=== PATIENT | female | born 1965 | race Caucasian/White ===

== ENCOUNTER → 2018-03-30 08:54 | Outpatient (CLI) | payer OTHER, SELFPAY | PROVIDERS: Referring Provider Surgery; Visit Provider Surgery | DX: S99.922A Unspecified injury of left foot, initial encounter (principal) ==

== ENCOUNTER 2018-09-01 08:30 | Outpatient (RCR) | payer OTHER, SELFPAY ==
--- NOTE | 2018-08-18 09:24 | HP.PTEVAL ---
Patient's Visit Information ALEXANDRO MILES is a 52 year old F referred to Physical Therapy by Riccardo Shane with a diagnosis of R shoulder bursitis. Date of Evaluation: 08/18/18 Physical Therapist: Nasim Hernandez PT, ATC - Visit Plan Frequency: 2-3x /Week Duration: 3 Weeks Plan: R shoulder strengthening (rot cuff), scapular stab ex's, overhead ricco, UBE, and HEP - Subjective Findings: Pt reports her R shoulder has been sore for the past 6 months. Pt reports her pain progressively worsened during the holidays this past 4 months. 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 Pt reports most of her lifting required overhead lifting which really increased pain. No tingling or numbness in R UE. Pt reports she had an injection last week, which has helped for about one week, but the pain is returning. Occasional sleep difficulty secondary to pain. Pt is R hand dominant. No Dx tests performed at this time. 2/10 pain at rest, 8/10 pain at worst - Pain R shoulder Pain Intensity (Out of 10): 2 Pain Intensity Range: 8 - Objective Neuro: B UE sensation is WNL to light touch. B bicepital reflex= 2/3. ROM: L shoulder flex= 165, abd= 180, ER= 70, IR WNL; R shoulder flex= 145, abd= 170, ER= 70, IR moderately limited. Palpation: Minor tenderness along distribution os supraspinatus muscle. No obvious deformity. MMT: R shoulder ER= 4-/5. All other movements are 5/5 throughout. Special tests: positive empty can, positive HK impingement sign - Goals Goal 1:: Decrease R shoulder pain x 50% to aid with sleep Goal Time Frame: 2-4 Weeks Goal 2:: Increase R shoulder ER strength to 5/5 to aid with work requirements Goal Time Frame: 2-4 Weeks Goal 3:: Increase R shoulder ROM flexion x 10-20 degrees to aid with overhead activity Goal Time Frame: 2-4 Weeks Goal 4:: I with HEP Goal Time Frame: 2-4 Weeks - Rehabilitation Potential Physical Therapy Diagnosis: R shoulder pain, weakness, and limited ROM secondary to impingement syndrome of the R shoulder Rehabilitation Potential: Good - Anticipated Interventions Patient/Client Instruction: Educate patient on: Condition, Plan of Care For the Purpose of:: To improve self management Therapeutic Exercise to Include: Strength training, Endurance training, Body mechanics, Postural training, Scapular Strength/Stabilization For the Purpose of:: To decrease pain, To increase ROM, To improve muscle performance and motor function Cryotherapy (ice pack, ice massage): Yes For the Purpose of:: To decrease pain Thank you for the opportunity to evaluate your patient. For Medicare and Medicare HMO plans, please review the plan of care and approve it. It will need to be FAXED BACK to us at [phone] for Medicare purposes. For Medicare only, by signing this I certify the plan of care. Please let me know if there are questions or concerns regarding this plan of care. Physician Signature: Date:
--- NOTE | 2018-09-01 08:58 | HP.PTDCSUM ---
HP - PT D/C Summary It has been my pleasure to treat ALEXANDRO MILES under orders from Riccardo Shane, for the diagnosis of R shoulder bursitis for a total of 3 visit(s). Discharge Date: Please see the following information for a summary of their discharge status. - Subjective Subjective: No increase in pain after last treatment. - Pain R shoulder Pain Intensity (Out of 10): 0 - Objective Objective/Function: No increase in pain with ex's - Goals Goal 1:: Decrease R shoulder pain x 50% to aid with sleep Goal 2:: Increase R shoulder ER strength to 5/5 to aid with work requirements Goal 3:: Increase R shoulder ROM flexion x 10-20 degrees to aid with overhead activity Goal 4:: I with HEP - Plan Plan: R shoulder strengthening (rot cuff), scapular stab ex's, overhead ricco, UBE, and HEP - D/C Information If there are questions or concerns regarding this patient's physical therapy, please feel free to call me at [phone]. Thank you for the referral of this patient. Sincerely, Nasim Hernandez, PT, ATC
--- NOTE | 2018-09-01 09:00 | HP.PTDCSUM ---
HP - PT D/C Summary It has been my pleasure to treat ALEXANDRO MILES under orders from Riccardo Shane, for the diagnosis of R shoulder bursitis for a total of 4 visit(s). Discharge Date: Please see the following information for a summary of their discharge status. - Subjective Subjective: No increase in pain after last treatment. - Pain R shoulder Pain Intensity (Out of 10): 0 - Overall Improvement % Improvement: 100 - Objective Objective/Function: No increase in pain with ex's - Goals Goal 1:: Decrease R shoulder pain x 50% to aid with sleep Goal Progress: Goal Met Goal 2:: Increase R shoulder ER strength to 5/5 to aid with work requirements Goal Progress: Goal Met Goal 3:: Increase R shoulder ROM flexion x 10-20 degrees to aid with overhead activity Goal Progress: Goal Met Goal 4:: I with HEP Goal Progress: Goal Met - Plan Plan: R shoulder strengthening (rot cuff), scapular stab ex's, overhead ricco, UBE, and HEP - D/C Information If there are questions or concerns regarding this patient's physical therapy, please feel free to call me at [phone]. Thank you for the referral of this patient. Sincerely, Nasim Hernandez, PT, ATC
== END 2018-09-01 10:09 | disposition home or self-care (01) ==
LOC: PT 08:30
PROVIDERS: Referring Provider Family Medicine; Visit Provider Family Medicine
DX: M75.51 Bursitis of right shoulder (principal)
CPT/HCPCS: 97110; 97161; 97530

== ENCOUNTER → 2018-09-24 | Outpatient (CLI) | payer OTHER, SELFPAY ==
[2018-09-24 10:10] VITALS: BMI 25.0
--- NOTE | 2018-09-24 10:14 | RAD_ITS ---
STUDY: X-RAY - CERVICAL SPINE REASON FOR EXAM: Female, 52 years old. Severe neck pain. TECHNIQUE: 5 view(s) of the cervical spine were obtained including oblique views. COMPARISON: None FINDINGS: Normal anterior atlantoaxial articulation. Normal odontoid process. There is straightening of the normal cervical lordosis. There is multi-level endplate spondylosis. There is multi-level degenerative disc disease with multilevel disc space narrowing. Normal visualized intervertebral neuroforamina. The soft tissue structures are unremarkable. RAD/Cerv Spine 4 or 5 Views IMPRESSION: Multilevel disc space narrowing and spondylosis. Electronically Signed: Karl Mathews, at 15:17 EDT , Service support ,
== END | disposition home or self-care (01) ==
LOC: HPRAD 10:14
PROVIDERS: PCP Nurse Practitioner Family; Referring Provider Orthopaedic Surgery; Visit Provider Orthopaedic Surgery
DX: M54.2 Cervicalgia (principal)
CPT/HCPCS: 72050

== ENCOUNTER 2018-10-08 08:30 | Outpatient (RCR) | payer OTHER, SELFPAY ==
[2018-09-24 10:10] VITALS: BMI 25.0
--- NOTE | 2018-10-01 08:21 | HP.PTEVAL_ITS ---
Patient's Visit Information ANI MILES is a 52 year old F referred to Physical Therapy by Jon Tadeo DO with a diagnosis of CERVICAL DDD,MUSCLE SPASMS. Date of Evaluation: 10/01/18 Physical Therapist: Alexander Ludwig, PT, Cert MDT, OCS - Visit Plan Frequency: 2x /Week Duration: 4 Weeks Plan: PT INTERVENTIONS PREET EX'S,CERVICAL POSTURAL EX'S,MANUAL THERAPY STRACTION/STM,MODALITIES - Subjective Findings: This 52 y/o female presents to physical therapy with cervical pain.Patient has had cervical 2 weeks ago lifting [place] at work ,patient woke up with stiffness pain in left side affected motion. Patient seen DR recommended PT provided medication and currently getting better, Aggravating factors rotation ,lifting heaving ,prolonged sitting, Alleviating factors MEDS . Denies parathesia/tingling . Denies LAWRENCE /tinnitus/nausea. Patient has had h/o cervical pain in past.No prior PT . Patient had prior PT for right shoulder. Patient has membership at [employer] . Symptoms affect job demnads and housework . Patient sleeping okay at night. 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 SOCIAL: - Pain Left Neck Pain Intensity (Out of 10): 1 Pain Intensity Range: 10 - Objective POSTURE: rounded shoulders head foward. NEURO: denies parathesia/tingling ,C5-6-7 2/3. PALPATION: unremarkable. AROM: flexion min/mod loss,mod rotation/lateral flexion mod loss,extension mod loss. MMT: BUE 4/5. 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 AROM: BUE WFL - Special Tests C/S Radiculapathy - Left Upper limb tension test: Negative C/S Radiculapathy - Right Upper limb tension test: Negative C/S Radiculapathy - Left Spurlings: Negative C/S Radiculapathy - Right Spurlings: Negative C/S Radiculapathy - Left Cervical distraction: Negative C/S Radiculapathy - Right Cervical distraction: Negative Sharp Aryan: Negative Vertebral Artery Test: Negative Alar Ligament Test: Negative Cervical Sitting: Protrusion - Mechanical Response: No effect Cervical Sitting: Protrusion - Symptoms During Testing: Increases Cervical Sitting: Protrusion - Symptoms After Testing: Worse Cervical Sitting: Retraction - Mechanical Response: No effect Cervical Sitting: Retraction - Symptoms During Testing: Decreases Cervical Sitting: Retraction - Symptoms After Testing: Better - Goals Goal 1:: Pateint to be Independant with HEP Goal Time Frame: 2-4 Weeks Goal 2:: Independant with posture for job demnads Goal Time Frame: 2-4 Weeks Goal 3:: Patient to decrease cervical pain by 50% or greater to improve function Goal Time Frame: 2-4 Weeks Goal 4:: Patient to improve cervical ROM for function of recovery Goal Time Frame: 2-4 Weeks Goal 5:: Patient to improve neck owestry score by 5 points or greare to improve QOL. Goal Time Frame: 2-4 Weeks - Rehabilitation Potential Physical Therapy Diagnosis: Eric has cervical pain with possible derrangement with loss of cervical ROM impairs ,pain and housework and job demands thus benifit from skilled PT Rehabilitation Potential: Good - Anticipated Interventions Patient/Client Instruction: Educate patient on: Condition, Plan of Care For the Purpose of:: To decrease pain, To increase ROM, To improve nutrient delivery to tissue, To increase oxygenation perfusion, To improve muscle performance and motor function, To increase tolerance to activity/condition/position, To improve ability of physical actions for home/community/work/leisure, To improve health of tissue, To decrease soft tissue restriction, To increase flexibility/ROM, To improve ability to perform tasks related to life management Therapeutic Exercise to Include: Strength training, Postural training, Flexibilty training, Active ROM, Preet Exercises For the Purpose of:: To decrease pain, To increase ROM, To improve muscle performance and motor function, To improve ability to perform ADL's, To increase tolerance to activity/condition/position, To improve ability of physical actions for home/community/work/leisure, To improve health of tissue, To decrease soft tissue restriction, To increase flexibility/ROM, To improve ability to perform tasks related to life management Manual Therapy Techniques to Include: Mobilization Comment: CERVICAL TRACTION For the Purpose of:: To decrease pain, To increase ROM, To improve nutrient delivery to tissue, To increase oxygenation perfusion, To improve health of tissue, To decrease soft tissue restriction, To increase flexibility/ROM TENS: Yes IF ES: Yes Cryotherapy (ice pack, ice massage): Yes Thermo therapy (hot pack): Yes Ultrasound (thermal/non thermal): Yes Intermittent cervical traction: Yes For the Purpose of:: To decrease pain, To increase ROM, To improve health of tissue, To decrease soft tissue restriction Thank you for the opportunity to evaluate your patient. For Medicare and Medicare HMO plans, please review the plan of care and approve it. It will need to be FAXED BACK to us at [phone] for Medicare purposes. For Medicare only, by signing this I certify the plan of care. Please let me know if there are questions or concerns regarding this plan of care. Physician Signature: Date:
--- NOTE | 2018-12-31 15:49 | HP.PTDCNRP_ITS ---
HP - Discharge Summary (1) - Patient Information ALEXANDRO MILES was seen in my office for initial evaluation on 10/01/18. The following Plan of Care was established for this patient: Initial Frequency: 2x /Week Initial Duration: 4 Weeks - Anticipated Interventions Patient/Client Instruction: Educate patient on: Condition, Plan of Care For the Purpose of:: To decrease pain, To increase ROM, To improve nutrient delivery to tissue, To increase oxygenation perfusion, To improve muscle performance and motor function, To increase tolerance to activity/condition/position, To improve ability of physical actions for home /community/work/leisure, To improve health of tissue, To decrease soft tissue restriction, To increase flexibility/ROM, To improve ability to perform tasks related to life management Therapeutic Exercise to Include: Strength training, Postural training, Flexibilty training, Active ROM, Singh Exercises For the Purpose of:: To decrease pain, To increase ROM, To improve muscle performance and motor function, To improve ability to perform ADL's, To increase tolerance to activity/condition/position, To improve ability of physical actions for home/community/work/leisure, To improve health of tissue, To decrease soft tissue restriction, To increase flexibility/ROM, To improve ability to perform tasks related to life management Manual Therapy Techniques to Include: Mobilization Comment: CERVICAL TRACTION For the Purpose of:: To decrease pain, To increase ROM, To improve nutrient delivery to tissue, To increase oxygenation perfusion, To improve health of tissue, To decrease soft tissue restriction, To increase flexibility/ROM TENS: Yes IF ES: Yes Cryotherapy (ice pack, ice massage): Yes Thermo therapy (hot pack): Yes Ultrasound (thermal/non thermal): Yes Intermittent cervical traction: Yes For the Purpose of:: To decrease pain, To increase ROM, To improve health of tissue, To decrease soft tissue restriction This patient was last seen in our office 10/08/18. Pertinent comments regarding their Physical therapy will appear below: Patient seen for PT for cervical pain with PT focusing on manual therapy,singh ex's and postureal ex's for HEP.THUS IS D/C At this point I will be discontinuing this patient from physical therapy. I would be happy to see this patient again in the future if found appropriate by the physician. Thank you! Alexander Ludwig, PT, Cert MDT, OCS
== END 2018-10-08 19:00 | disposition home or self-care (01) ==
LOC: PT 08:30
PROVIDERS: Referring Provider Orthopaedic Surgery; Visit Provider Orthopaedic Surgery
DX: M47.892 Other spondylosis, cervical region (principal); R25.2 Cramp and spasm
CPT/HCPCS: 97035; 97140; 97161

== ENCOUNTER → 2019-03-03 | Outpatient (CLI) | payer OTHER, SELFPAY ==
[2018-09-24 10:10] VITALS: BMI 25.0
--- NOTE | 2019-03-03 13:38 | BI_ITS ---
MAMMOGRAPHY - BILATERAL SCREENING REASON FOR EXAM: Female, 53 years old. Routine annual screening examination. PERTINENT HISTORY: Non-contributory. Remote bilateral breast reduction surgery. TECHNIQUE: Digital bilateral breast zuri (3D mammographic acquisition) in the CC and MLO projections. 2-D mediolateral oblique (MLO) and craniocaudad (CC) views of both breasts were obtained. CAD: Full Field Digital Mammography with Computer Added Detection was performed. COMPARISON: Comparison is made with prior outside examination dated June 04, 2016. FINDINGS: Breast Composition: The breasts are heterogeneously dense, which may obscure small masses. There are no dominant masses or suspicious calcifications. No other significant abnormalities are identified. There has been no significant change since the prior study. BI/SCREEN MAMM (CAD) W/ZURI BILAT IMPRESSION: Stable bilateral screening mammogram. Yearly follow-up mammogram recommended. (A) ASSESSMENT CATEGORY: BIRADS Category 1: Negative. A letter regarding these results will be sent to the patient by the facility within 30 days. Approximately 10% of breast cancers are not detected by mammography. A normal mammogram should not delay biopsy of a clinically suspicious abnormality. [id number] Electronically Signed: Karl Mathews, at 14:31 EST , Service support ,
== END | disposition home or self-care (01) ==
LOC: OPBI 13:36
PROVIDERS: Family Provider Internal Medicine; PCP Internal Medicine; Referring Provider Nurse Practitioner Women's Health; Visit Provider Nurse Practitioner Women's Health
DX: Z12.31 Encounter for screening mammogram for malignant neoplasm of breast (principal)
CPT/HCPCS: 77063; 77067

== ENCOUNTER → 2019-10-13 07:14 | Outpatient (CLI) | payer OTHER, SELFPAY ==
[2018-09-24 10:10] VITALS: BMI 25.0
--- NOTE | 2019-10-13 07:27 | MRI_ITS ---
STUDY: MRI RIGHT SHOULDER REASON FOR EXAM: Female, 53 years old. persistant R shoulder/arm pain x 1.5 yrs, no injury, decreased rom TECHNIQUE: Standardized fat and water weighted pulse sequences were obtained in all 3 orthogonal planes. COMPARISON: None. FINDINGS: Mild supraspinatus tendinosis with fraying of the bursal surface fibers (coronal image 13 series 5). No high-grade or full-thickness rotator cuff tear. Mild infraspinatus tendinosis. Mild subscapularis tendinosis. Normal teres minor tendon. No muscle atrophy. Normal intracapsular long biceps tendon. Biceps labral anchor intact. Labrum intact. Capsular ligaments intact. Normal rotator cuff interval. Minimal glenohumeral articular cartilage loss. Mild acromioclavicular joint arthrosis. Anterior interval narrowing (sagittal image 13 series 6). No acute fracture. No dislocation. No bone destruction. Mild subacromial subdeltoid bursitis. Glenohumeral joint fluid physiologic. Intact coracohumeral and coracoacromial ligaments. Normal quadrilateral space. Normal axillary space. Normal deltoid muscle. Normal trapezius muscle. MRI/Upper Ext Joint Only(Routine) IMPRESSION: Mild rotator cuff tendinosis with supraspinatus bursal surface fraying Minimal glenohumeral and mild AC joint arthrosis Anterior interval narrowing/impingement Mild subacromial subdeltoid bursitis Electronically Signed: Ehsan Marino DO at 8:48 EDT Tel , Service support ,
== END ==
PROVIDERS: Referring Provider Family Medicine; Visit Provider Family Medicine
DX: M25.511 Pain in right shoulder (principal); G89.29 Other chronic pain
CPT/HCPCS: 73221

== ENCOUNTER 2019-11-23 08:00 | Outpatient (RCR) | payer OTHER, SELFPAY ==
[2018-09-24 10:10] VITALS: BMI 25.0
--- NOTE | 2019-10-31 08:13 | HP.PTEVAL_ITS ---
Patient's Visit Information ALEXANDRO MILES is a 53 year old F referred to Physical Therapy by Dr. Riccardo Shane DO with a diagnosis of Right Shoulder Impingment. 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 She reports pain is in the deltoid-no pain in the shoulder itself- no pain radiating past the elbow. Describes the pain as sharp/shooting as she uses it- more dull and achy when she isnt using it and at night. Sleep: disturbed. Worst: 8/10 Agg: lifting overhead, use and sleep. Best: 0/10 Eases: Aleve. Has had injections- they work but they only last 2-3 weeks. Has had an MRI which did not show a tear. Exercise routine: no weights overhead at this point- hard to any arms or planks. Did have success with PT last time and does some of the exercises but not consistently. 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 No LAWRENCE, blurred vision or neck pain. Exercise regime: walks 4-5x a week works out with [employer] /W/Thursday. Last Injection: July. Right hand dominate. PMHx: none Meds: none - Objective Posture: FH, RS- can correct but does not maintain. Gait: good arm swing and trunk rotation. Palpation: not tender to touch does have trigger points throughout medial border of the scapula. ROM: WFL but reports pain with IR behind the back and flexion/abduction at end range. Cervical Spine: WNL no pain. Strength: Scap: fair, Shoulder: 4/5 throughout with pain, Elbow: 5/5, Wrist: 5/5 [address] Abstractor: equal side to side. Special Test: Empty Can: negative, Impingment: Tellez: positive, Neer: positive - Goals Goal 1:: Patient will be I with HEP and progression Goal Time Frame: 4-6 Weeks Goal 2:: Patient will demo full AROM with 0/10 pain Goal Time Frame: 4-6 Weeks Goal 3:: Patient will maintain proper posture t/o to demo increased scap s.s. Goal Time Frame: 4-6 Weeks Goal 4:: Patient will report sleeping through the night for 1 week no pain Goal Time Frame: 4-6 Weeks - Rehabilitation Potential Physical Therapy Diagnosis: Patient presents with hypmobility- she has decreased painfree ROM, strength and muscular endurance leading to poor posture and increased pain with ADL's. Rehabilitation Potential: Fair - Anticipated Interventions Patient/Client Instruction: Educate patient on: Benefits of Fitness Program Therapeutic Exercise to Include: Strength training, Endurance training, Body mechanics, Postural training, Flexibilty training, Passive ROM, Active ROM, Dynamic Lumbar Stabilization, Scapular Strength/Stabilization For the Purpose of:: To improve muscle performance and motor function TENS: Yes Cryotherapy (ice pack, ice massage): Yes Thermo therapy (hot pack): Yes Ultrasound (thermal/non thermal): Yes Thank you for the opportunity to evaluate your patient. For Medicare and Medicare HMO plans, please review the plan of care and approve it. It will need to be FAXED BACK to us at [phone] for Medicare purposes. For Medicare only, by signing this I certify the plan of care. Please let me know if there are questions or concerns regarding this plan of care. Physician Si gnature: Date:
--- NOTE | 2020-01-23 16:38 | HP.PT.NRP ---
ALEXANDRO MILES was seen in my office for initial evaluation on 10/31/19. The following Plan of Care was established for this patient: Initial Frequency: 3x /Week Initial Duration: 3 Weeks Patient/Client Instruction: Educate patient on: Benefits of Fitness Program Therapeutic Exercise to Include: Strength training, Endurance training, Body mechanics, Postural training, Flexibilty training, Passive ROM, Active ROM, Dynamic Lumbar Stabilization, Scapular Strength/Stabilization For the Purpose of:: To improve muscle performance and motor function TENS: Yes Cryotherapy (ice pack, ice massage): Yes Thermo therapy (hot pack): Yes Ultrasound (thermal/non thermal): Yes This patient was last seen in our office . Pertinent comments regarding their Physical therapy will appear below: Patient has not returned to PT in over 6 weeks- appropriate for d/c and return to MD for further evaluation as needed. At this point I will be discontinuing this patient from physical therapy. I would be happy to see this patient again in the future if found appropriate by the physician. Thank you! Carmela Vigil DPT
== END 2019-11-23 19:00 | disposition home or self-care (01) ==
LOC: PT 08:00
PROVIDERS: Referring Provider Family Medicine; Visit Provider Family Medicine
DX: M75.41 Impingement syndrome of right shoulder (principal)
CPT/HCPCS: 97110; 97161

== ENCOUNTER → 2020-04-13 16:51 | Outpatient (CLI) | payer OTHER, SELFPAY ==
[2020-04-13 09:01] VITALS: BMI 27.4
[2020-04-18 10:41] LABS: HPV APTIMA, High Risk Negative (Negative)
== END ==
PROVIDERS: Referring Provider Obstetrics & Gynecology; Visit Provider Obstetrics & Gynecology
DX: Z12.4 Encounter for screening for malignant neoplasm of cervix (principal)
CPT/HCPCS: 87624; 88175; G0145

== ENCOUNTER → 2020-05-21 08:12 | Outpatient (CLI) | payer OTHER, SELFPAY ==
[2020-04-13 09:01] VITALS: BMI 27.4
--- NOTE | 2020-05-21 08:14 | BI_ITS ---
MAMMOGRAPHY - BILATERAL SCREENING REASON FOR EXAM: Female, 54 years old. Routine annual screening examination. PERTINENT HISTORY: Non-contributory. History of remote bilateral breast reduction surgery. TECHNIQUE: Digital bilateral breast zuri (3D mammographic acquisition) in the CC and MLO projections. 2-D mediolateral oblique (MLO) and craniocaudad (CC) views of both breasts were obtained. CAD: Full Field Digital Mammography with Computer Added Detection was performed. COMPARISON: Comparison is made with prior study dated 03/03/2019. FINDINGS: Breast Composition: The breasts are heterogeneously dense, which may obscure small masses. There are no dominant masses or suspicious calcifications. No other significant abnormalities are identified. There has been no significant change since the prior study. BI/SCRN MAMM (CAD)W/ZURI BILAT IMPRESSION: Stable bilateral screening mammogram. Yearly follow-up mammogram recommended. (A) ASSESSMENT CATEGORY: BIRADS Category 1: Negative. A letter regarding these results will be sent to the patient by the facility within 30 days. Approximately 10% of breast cancers are not detected by mammography. A normal mammogram should not delay biopsy of a clinically suspicious abnormality. [id number] Electronically Signed: Karl Mathews MD at 9:07 EST , Service support ,
== END ==
PROVIDERS: Referring Provider Obstetrics & Gynecology; Visit Provider Obstetrics & Gynecology
DX: Z12.31 Encounter for screening mammogram for malignant neoplasm of breast (principal)
CPT/HCPCS: 77063; 77067

== ENCOUNTER 2020-06-01 13:37 | Outpatient (RCR) | payer OTHER, SELFPAY ==
[2020-04-13 09:01] VITALS: BMI 27.4
== END 2020-06-01 23:59 ==
LOC: IMMUN 13:37
PROVIDERS: Visit Provider Family Medicine
DX: Z23 Encounter for immunization (principal)
CPT/HCPCS: 0011A; 0012A